=== PATIENT | male | born 1985 | race Two or more races ===

== ENCOUNTER 2023-12-22 10:54 | Emergency (ER) | payer MEDICAID, OTHER ==
[~2023-12-22] VITALS: Ht 198.1 cm; Wt 114.3 kg
[2023-12-22] MEDS ORDERED: DOCU-94 PO (11:31)
[2023-12-22] MEDS ORDERED: METR-344 PO (11:31)
[2023-12-22] MEDS ORDERED: IBUP-1455 PO (11:31)
[2023-12-22] MEDS ORDERED: CIPR-173 PO (11:31)
[2023-12-22 11:55] VITALS: BP 130/88; PULSE 88; RESP 16; TEMP 98.7; O2SAT 98
== END 2023-12-22 11:58 | disposition home or self-care (01) ==
LOC: ER 10:54
DX: K61.1 Rectal abscess (principal)